=== PATIENT | male | born 1995 | race Caucasian/White ===

== ENCOUNTER 2017-09-27 16:05 | Emergency (ER) | payer OTHER ==
[~2017-09-27] VITALS: Ht 175.3 cm; Wt 79.4 kg
== END 2017-09-27 19:27 | disposition home or self-care (01) ==
LOC: ER 16:05
DX: L27.0 Generalized skin eruption due to drugs and medicaments taken internally (principal); T44.5X5A Adverse effect of predominantly beta-adrenoreceptor agonists, initial encounter; Y92.89 Other specified places as the place of occurrence of the external cause

== ENCOUNTER 2020-01-20 15:57 | Outpatient (CLI) | payer OTHER | END 2020-01-20 16:08 | disposition home or self-care (01) | LOC: LAB 15:57 | PROVIDERS: ATTEND Surgery | DX: Z20.828 Contact with and (suspected) exposure to other viral communicable diseases (principal); Z11.59 Encounter for screening for other viral diseases; J01.80 Other acute sinusitis ==

== ENCOUNTER → 2020-01-26 | Outpatient (CLI) | payer OTHER | END | disposition home or self-care (01) | LOC: TOM 12:57 | DX: J01.80 Other acute sinusitis (principal); J35.2 Hypertrophy of adenoids ==

== ENCOUNTER 2021-02-15 14:06 | Outpatient (CLI) | payer OTHER | END 2021-02-15 14:11 | disposition home or self-care (01) | LOC: LAB 14:06 | PROVIDERS: ATTEND Surgery | DX: L50.8 Other urticaria (principal); Z00.00 Encounter for general adult medical examination without abnormal findings ==

== ENCOUNTER 2021-09-16 03:25 | Emergency (ER) | payer OTHER ==
[~2021-09-16] VITALS: Ht 175.3 cm; Wt 83.9 kg
== END 2021-09-16 13:43 | disposition home or self-care (01) ==
LOC: ER 03:25
DX: K29.70 Gastritis, unspecified, without bleeding (principal); E86.0 Dehydration

== ENCOUNTER 2023-11-02 14:18 | Outpatient (CLI) | payer OTHER | END 2023-11-02 14:19 | disposition home or self-care (01) | LOC: TOM 14:18 | DX: R51.9 Headache, unspecified (principal) ==